=== PATIENT | female | born 1975 | race Caucasian/White ===

== ENCOUNTER 2016-09-23 07:43 | Emergency (ER) | payer BC ==
[~2016-09-23] VITALS: Ht 162.6 cm; Wt 81.6 kg
[2016-09-23 08:05] VITALS: BP 161/94
--- NOTE | 2016-09-23 08:10 | PHYS DOC ---
Past Medical History Past Medical History: Anxiety Adult General Chief Complaint Chief Complaint: ANXIETY/PANIC ATTACK HPI HPI Patient is a 40 year old female with a history of anxiety who presents today with an anxiety attack since last night. Patient states her children between 14 and 11 have been living with her father/their grandfather for the last 1 year. Patient states the patient's father is not able to help the children because he has his own mental issues including schizophrenia. Patient states she is living with the boyfriend who is not supportive of the patient and her children. Patient states this situation is creating anxiety for her. Patient states she is worried that things will go wrong. She states she is also feeling guilty because she feels she is supposed to be living with her children but she is not. Patient states she used to smoke Meth, but stopped one month ago. Patient states she did use marijuana prior to coming to the ED in hope that this will relaxer but it did not. Patient denies any chest pain or shortness of breath. Denies any suicidal homicidal ideation. PCP is Dr. King Review of Systems Review of Systems Constitutional: Denies fever or chills [] Eyes: Denies change in visual acuity, redness, or eye pain [] HENT: Denies nasal congestion or sore throat [] Respiratory: Denies cough or shortness of breath [] Cardiovascular: See history of present illness GI: Denies abdominal pain, nausea, vomiting, bloody stools or diarrhea [] : Denies dysuria or hematuria [] Musculoskeletal: Denies back pain or joint pain [] Integument: Denies rash or skin lesions [] Neurologic: Denies headache, focal weakness or sensory changes [] Endocrine: Denies polyuria or polydipsia [] Psych: Anxiety Current Medications Current Medications Current Medications Medications (Trade) Dose Ordered Sig/Kailash Start Time Stop Time Status Last Admin Dose Admin Alprazolam (Xanax) 0.5 mg 1X ONCE 09/23/16 08:15 09/23/16 08:16 Allergies Allergies Allergies Coded Allergies Type Severity Reaction Last Updated Verified No Known Drug Allergies 09/23/16 No Physical Exam Physical Exam Constitutional: Well developed, well nourished, no acute distress, non-toxic appearance. [] HENT: Normocephalic, atraumatic, bilateral external ears normal, oropharynx moist, no oral exudates, nose normal. [] Eyes: PERRLA, EOMI, conjunctiva normal, no discharge. [] Neck: Normal range of motion, no tenderness, supple, no stridor. [] Cardiovascular:Heart rate regular rhythm, no murmur [] Lungs & Thorax: Bilateral breath sounds clear to auscultation [] Abdomen: Bowel sounds normal, soft, no tenderness, no masses, no pulsatile masses. [] Skin: Warm, dry, no erythema, no rash. [] Back: No tenderness, no CVA tenderness. [] Extremities: No tenderness, no cyanosis, no clubbing, ROM intact, no edema. [] Neurologic: Alert and oriented X 3, normal motor function, normal sensory function, no focal deficits noted. [] Psychologic: Affect normal, judgement normal, patient is tearful. EKG EKG [] Radiology/Procedures Radiology/Procedures [] Course & Med Decision Making Course & Med Decision Making Pertinent Labs and Imaging studies reviewed. (See chart for details) Patient with history of anxiety presents today with anxiety, she states that anxiety is being caused by her children living with the grandfather for the last 1 year. Patient is in no distress. She was tearful on arrival to the ED. She was given 0.5mg Xanax in the ED. She has a PCP. I recommended she follows up with the PCP as soon as possible to see if they can put down something for anxiety or [facility]. She was provided return precautions and discharged in stable condition. Dragon Disclaimer Dragon Disclaimer This electronic medical record was generated, in whole or in part, using a voice recognition dictation system. Departure Departure Impression: Primary Impression: Anxiety attack Disposition: 01 HOME, SELF-CARE Condition: STABLE Patient Instructions: Anxiety and Panic Attacks, [id number] Additional Instructions: You were seen for an anxiety attack. We highly recommend you contact your own primary care doctor or [facility] and follow-up as soon as possible. Come back to the emergency room if symptoms worsen. Come back to the emergency room if you develop any chest pain or shortness of breath. BRENDA WATTERS APRN Sep 23, 2016 08:10
[2016-09-23] MEDS ORDERED: ALPRAZOLAM 0.5 MG TABLET PO ONE (08:15)
== END 2016-09-23 10:07 | disposition home or self-care (01) ==
LOC: ER 07:43
DX: F41.9 Anxiety disorder, unspecified (principal); F12.10 Cannabis abuse, uncomplicated
CPT/HCPCS: 99284

== ENCOUNTER 2017-03-12 12:07 | Emergency (ER) | payer BC ==
[~2017-03-12] VITALS: Ht 162.6 cm; Wt 77.1 kg
[2017-03-12 12:43] LABS: BASO % 1 % (0-3); EOS % 2 % (0-3); HEMATOCRIT 39.5 % (36.0-47.0); HEMOGLOBIN 13.5 g/dL (12.0-15.5); LYMPH # 2.3 x10^3/uL (1.0-4.8); LYMPH % 30 % (24-48); MEAN CORPUSCULAR HEMOGLOBIN 31 pg (25-35); MEAN CORPUSCULAR HGB CONC 34 g/dL (31-37); MEAN CORPUSCULAR VOLUME 92 fL (79-100); MONO % 7 % (0-9); NEUT % 60 % (31-73); PLATELET COUNT 343 x10^3/uL (140-400); RED BLOOD COUNT 4.31 x10^6/uL (3.50-5.40); RED CELL DISTRIBUTION WIDTH 12.8 % (11.5-14.5); WHITE BLOOD COUNT 7.5 x10^3/uL (4.0-11.0)
[2017-03-12] MEDS ORDERED: ACETAMINOPHEN 500 MG TABLET PO ONE (12:45)
[2017-03-12 12:54] LABS: CALCIUM 9.4 mg/dL (8.5-10.1); CREATININE 0.9 mg/dL (0.6-1.0); GFR 69.7; POTASSIUM 3.8 mmol/L (3.5-5.1)
[2017-03-12 12:58] LABS: ALBUMIN/GLOBULIN RATIO 1.2 (1.0-1.7); TOTAL BILIRUBIN 0.4 mg/dL (0.2-1.0); TOTAL PROTEIN 7.3 g/dL (6.4-8.2)
[2017-03-12 13:07] VITALS: BP 124/83
--- NOTE | 2017-03-12 13:13 | PHYS DOC ---
Past Medical History Past Medical History: Anxiety, Seizure Past Surgical History: No Surgical History Alcohol Use: Rarely Drug Use: Marijuana, Methamphetamine Adult General Chief Complaint Chief Complaint: SEIZURE HPI HPI Patient is a 41 year old female brought from work by EMS after a seizure. Patient states that she was diagnosed a long time ago with a seizure disorder. Her last seizure she believes was in June 2016. She does not take any medications. She used to take Dilantin long time ago but she lost her insurance and hasn't taken it for a long time. She can usually tell when she is going to have a seizure because she feels a shocking sensation through her body. Today she did feel that sensation before this seizure. She doesn't ever have that sensation when she doesn't have a seizure. She has seen a neurologist, Dr. Emery, a while ago and he wanted her to come back and have some tests that she never did return. She is willing to do that. She states he did not recommend Dilantin until after those test results were done. At this time the patient has a headache. She states she usually does have a headache after a seizure. She usually takes Excedrin for it. She has had a CT scan in the past that she believes was normal. The patient does drive "sometimes". She has no other medical problems. She has had a tubal ligation. Review of Systems Review of Systems Constitutional: Denies fever or chills [] Eyes: Denies change in visual acuity, redness, or eye pain [] HENT: Denies nasal congestion or sore throat [] Respiratory: Denies cough or shortness of breath [] Cardiovascular: Denies chest pain GI: Denies abdominal pain, nausea, vomiting, bloody stools or diarrhea [] : Denies dysuria or hematuria [] Musculoskeletal: Denies back pain or joint pain [] Integument: Denies rash or skin lesions [] Neurologic: As in history of present illness Current Medications Current Medications Current Medications Medications (Trade) Dose Ordered Sig/Kailash Start Time Stop Time Status Last Admin Dose Admin Acetaminophen (Tylenol) 1,000 mg 1X ONCE 03/12/17 12:45 03/12/17 12:46 DC 03/12/17 12:41 1,000 MG Phenytoin Sodium (Dilantin) 300 mg 1X ONCE 03/12/17 13:30 03/12/17 13:31 DC 03/12/17 13:25 300 MG Allergies Allergies Allergies Coded Allergies Type Severity Reaction Last Updated Verified No Known Drug Allergies 09/23/16 No Physical Exam Physical Exam Constitutional: Well developed, well nourished, no acute distress, non-toxic appearance. Alert, mentating normally. No seizure activity. HENT: Normocephalic, atraumatic, bilateral external ears normal, nose normal. [ ] Eyes: PERRL, EOMI, conjunctiva normal, no discharge. [] Neck: Normal range of motion, no stridor. [] Cardiovascular:Heart rate regular rhythm, no murmur [] Lungs & Thorax: Bilateral breath sounds clear to auscultation [] Abdomen: Bowel sounds normal, soft, no tenderness, no masses, no pulsatile masses. [] Skin: Warm, dry, no erythema, no rash. [] Extremities: No tenderness, no cyanosis, no clubbing, ROM intact, no edema. [] Neurologic: Alert and oriented X 3, normal motor function, normal sensory function, no focal deficits noted. [] Current Patient Data Vital Signs Vital Signs Date Time Temp Pulse Resp B/P (MAP) Pulse Ox O2 Delivery O2 Flow Rate FiO2 03/12/17 13:07 86 14 124/83 (97) 95 Room Air 03/12/17 12:07 98.2 98.2 Lab Values Laboratory Tests Test 03/12/17 12:25 White Blood Count 7.5 x10^3/uL (4.0-11.0) Red Blood Count 4.31 x10^6/uL (3.50-5.40) Hemoglobin 13.5 g/dL (12.0-15.5) Hematocrit 39.5 % (36.0-47.0) Mean Corpuscular Volume 92 fL (79-100) Mean Corpuscular Hemoglobin 31 pg (25-35) Mean Corpuscular Hemoglobin Concent 34 g/dL (31-37) Red Cell Distribution Width 12.8 % (11.5-14.5) Platelet Count 343 x10^3/uL (140-400) Neutrophils (%) (Auto) 60 % (31-73) Lymphocytes (%) (Auto) 30 % (24-48) Monocytes (%) (Auto) 7 % (0-9) Eosinophils (%) (Auto) 2 % (0-3) Basophils (%) (Auto) 1 % (0-3) Neutrophils # (Auto) 4.5 x10^3uL (1.8-7.7) Lymphocytes # (Auto) 2.3 x10^3/uL (1.0-4.8) Monocytes # (Auto) 0.5 x10^3/uL (0.0-1.1) Eosinophils # (Auto) 0.1 x10^3/uL (0.0-0.7) Basophils # (Auto) 0.0 x10^3/uL (0.0-0.2) Sodium Level 141 mmol/L (136-145) Potassium Level 3.8 mmol/L (3.5-5.1) Chloride Level 104 mmol/L (98-107) Carbon Dioxide Level 30 mmol/L (21-32) Anion Gap 7 (6-14) Blood Urea Nitrogen 12 mg/dL (7-20) Creatinine 0.9 mg/dL (0.6-1.0) Estimated GFR (Cockcroft-Gault) 69.7 BUN/Creatinine Ratio 13 (6-20) Glucose Level 87 mg/dL (70-99) Calcium Level 9.4 mg/dL (8.5-10.1) Total Bilirubin 0.4 mg/dL (0.2-1.0) Aspartate Amino Transferase (AST) 19 U/L (15-37) Alanine Aminotransferase (ALT) 29 U/L (14-59) Alkaline Phosphatase 87 U/L (46-116) Total Protein 7.3 g/dL (6.4-8.2) Albumin 4.0 g/dL (3.4-5.0) Albumin/Globulin Ratio 1.2 (1.0-1.7) Laboratory Tests 03/12/17 12:25 Laboratory Tests 03/12/17 12:25 EKG EKG 12-lead EKG read by me. Sinus rhythm. Heart rate 88. There are no acute ST or T wave changes indicative of ischemia or infarction. No STEMI. 1242 [] Radiology/Procedures Radiology/Procedures [] Course & Med Decision Making Course & Med Decision Making Pertinent Labs and Imaging studies reviewed. (See chart for details) 41-year-old female with a diagnosis seizure disorder suffered a self-limited seizure at work. Labs in the ED normal. She was observed for about an hour without recurrence. She was given Tylenol and caffeine beverage for her headache. I called Dr. Emery to discuss the case. He will see the patient in the office. He recommended that the patient be orally loaded today with 300 mg every 2 hours 3 total doses then start her regular 300 daily at bedtime tomorrow at bedtime. She was given her first dose in the emergency department and a prescription. I strongly urged the patient to follow up with Dr. Emery as had previously been arranged. I advised her no driving whatsoever until she is cleared to do so by a neurologist. See instructions for plan. [] Dragon Disclaimer Dragon Disclaimer This electronic medical record was generated, in whole or in part, using a voice recognition dictation system. Departure Departure Impression: Primary Impression: Generalized seizure Disposition: HOME, SELF-CARE Condition: LEFT WITHOUT BEING SEEN Referrals: KATARINA WAGONER APRN (PCP) CATALINA DIAZ MD Patient Instructions: Seizure, Adult Additional Instructions: As we discussed, NO driving whatsoever until you are cleared to drive by a neurologist. As we discussed, call today for an appointment to see your neurologist, Dr. Emery. I did discuss your case today with Dr. Emery who recommended that we restart you on Dilantin. He would like to give you Dilantin 3 doses today to get it into your system rapidly. You had your first dose here in the emergency department. You'll take 2 more doses today, 2 hours apart. Your second dose will be due at about 3:30 in your third dose at about 5:30. Starting tomorrow, take one dose each day at bedtime, 300 mg every evening. Avoid doing things that could be harmful when you have a seizure including swimming, climbing on ladders, walking in traffic, and certainly avoid driving. Scripts Phenytoin Sodium Extended (DILANTIN) 100 Mg Capsule 3 CAP PO QHS for seizures for 30 Days, #90 CAP 0 Refills Prov: LEIDY ROWE MD 03/12/17 LEIDY ROWE MD Mar 12, 2017 13:13
--- NOTE | 2017-03-12 13:20 | EKG ---
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
[2017-03-12] MEDS ORDERED: PHEN100C PO (13:23)
[2017-03-12] MEDS ORDERED: PHENYTOIN SODIUM EXTENDED 100 MG CAPSULE PO ONE (13:30)
== END 2017-03-12 13:38 | disposition home or self-care (01) ==
LOC: ER 12:07
DX: G40.909 Epilepsy, unspecified, not intractable, without status epilepticus (principal); F12.10 Cannabis abuse, uncomplicated; F15.10 Other stimulant abuse, uncomplicated; F41.9 Anxiety disorder, unspecified
CPT/HCPCS: 36415; 80053; 85027; 93005; 99285-25